=== PATIENT | female | born 1940 | race Caucasian/White ===

== ENCOUNTER → 2016-10-23 | Outpatient (CLI) | payer MEDICARE, BC ==
[~2016-10-23] MED LIST: ACTOS30 MG PO; ALPRAZOLAM0.5 MG PO; ALTACE5 MG PO; ELIQUIS5 MG PO; NORCO 7.5-3251 EACH PO; NORVASC5 MG PO; PRAVACHOL40 MG PO; SERTRALINE HCL100 MG PO; VITAMIN D250000 UNIT PO
== END ==
LOC: US 11:58
DX: N28.1 Cyst of kidney, acquired (principal)

== ENCOUNTER → 2020-05-31 | Outpatient (CLI) | payer MEDICARE ==
[~2020-05-31] MED LIST changes: +ALTACE10 MG PO; +BENADRYL 1% CRE15 GM TP; +CARVEDILOL12.5 MG PO; +CLEOCIN HCL300 MG PO; +EYE VITAMIN PO; +KEFLEX CAP 500500 MG PO; +LEVAQUIN500 MG PO; +LEVOFLOXACIN500 MG PO; +MICROZIDE12.5 MG PO; +NITROSTAT0.4 MG SL; +PERCOCET 5/325 T1 EA PO; +RAMIPRIL10 MG PO; +VISION PLUS LU1 EACH PO; +VITAMIN D21250 MCG PO; -VITAMIN D250000 UNIT PO
[2020-05-31 14:48] LABS: HEMOGLOBIN 11.4 gm/dl (12.3-15.3); RED BLOOD COUNT 3.98 M/UL (4.00-5.10); WHITE BLOOD COUNT 6.5 K/UL (4.5-11.0)
== END ==
LOC: LAB 14:12
PROVIDERS: Internal Medicine Cardiovascular Disease
DX: Z01.818 Encounter for other preprocedural examination (principal); R60.9 Edema, unspecified; R53.83 Other fatigue; R55 Syncope and collapse; R00.1 Bradycardia, unspecified; R06.02 Shortness of breath
CPT/HCPCS: 36415; 71046; 80048; 85025

== ENCOUNTER → 2020-06-02 | Outpatient (CLI) | payer MEDICARE | LOC: CATH 07:19 | PROC: 0JPT32Z Removal of Monitoring Device from Trunk Subcutaneous Tissue and Fascia, Percutaneous Approach (ICD-10-PCS; principal; 2020-06-02) | DX: Z45.09 Encounter for adjustment and management of other cardiac device (principal); I48.0 Paroxysmal atrial fibrillation; I35.0 Nonrheumatic aortic (valve) stenosis; E78.5 Hyperlipidemia, unspecified; E11.9 Type 2 diabetes mellitus without complications; Z79.01 Long term (current) use of anticoagulants; Z82.49 Family history of ischemic heart disease and other diseases of the circulatory system; Z86.73 Personal history of transient ischemic attack (TIA), and cerebral infarction without residual deficits; Z79.899 Other long term (current) drug therapy; Z20.822 Contact with and (suspected) exposure to COVID-19 | CPT/HCPCS: 82962; 99152; 99153; J2250; J3010; J3370; J7040; J7050 ==

== ENCOUNTER → 2020-06-09 | Outpatient (CLI) | payer MEDICARE ==
[2020-06-09 12:02] LABS: HEMOGLOBIN 11.1 gm/dl (12.3-15.3); RED BLOOD COUNT 3.94 M/UL (4.00-5.10); WHITE BLOOD COUNT 6.8 K/UL (4.5-11.0)
== END ==
LOC: LAB 11:02
DX: I20.9 Angina pectoris, unspecified (principal); I35.0 Nonrheumatic aortic (valve) stenosis; I48.0 Paroxysmal atrial fibrillation; R53.83 Other fatigue; R06.02 Shortness of breath; Z87.898 Personal history of other specified conditions
CPT/HCPCS: 36415; 80048; 85025; 85610; 85730

== ENCOUNTER → 2020-06-13 | Outpatient (CLI) | payer MEDICARE | END | disposition home or self-care (01) | LOC: CATH 08:12 | DX: I35.0 Nonrheumatic aortic (valve) stenosis (principal); I27.20 Pulmonary hypertension, unspecified; I48.0 Paroxysmal atrial fibrillation; I11.0 Hypertensive heart disease with heart failure; I50.30 Unspecified diastolic (congestive) heart failure; E11.9 Type 2 diabetes mellitus without complications; E78.5 Hyperlipidemia, unspecified; F41.9 Anxiety disorder, unspecified; F32.9 Major depressive disorder, single episode, unspecified; M19.90 Unspecified osteoarthritis, unspecified site; Z86.73 Personal history of transient ischemic attack (TIA), and cerebral infarction without residual deficits; Z82.49 Family history of ischemic heart disease and other diseases of the circulatory system; Z83.3 Family history of diabetes mellitus; Z88.5 Allergy status to narcotic agent; Z91.040 Latex allergy status; Z79.01 Long term (current) use of anticoagulants; Z79.899 Other long term (current) drug therapy | CPT/HCPCS: 82962; 99152; 99153; C1751; C1769; C1894; J1644; J2250; J3010; J7030; Q9965 ==

== ENCOUNTER 2020-07-12 15:44 | Emergency (ER) | payer MEDICARE ==
[2020-07-12 16:36] LABS: HEMOGLOBIN 10.9 gm/dl (12.3-15.3); RED BLOOD COUNT 3.93 M/UL (4.00-5.10); WHITE BLOOD COUNT 7.3 K/UL (4.5-11.0)
== END 2020-07-12 21:34 | disposition home or self-care (01) ==
LOC: ER1 15:44
PROVIDERS: Emergency Medicine
DX: U07.1 COVID-19 (principal); I10 Essential (primary) hypertension; E78.5 Hyperlipidemia, unspecified; E11.9 Type 2 diabetes mellitus without complications
CPT/HCPCS: 36415; 36600; 71045; 80053; 82550; 82553; 82803; 83690; 83874; 84484; 85025; 85379; 85610; 87635; 93005; 99285; M0239

== ENCOUNTER → 2021-05-31 | Outpatient (CLI) | payer MEDICARE ==
[2021-06-01 08:13] LABS: A/G RATIO 1.8 (1.2-2.2); BILIRUBIN, TOTAL 0.3 mg/dL (0.0-1.2); CALCIUM, SERUM 9.6 mg/dL (8.7-10.3); CREATININE, SERUM 1.15 mg/dL (0.57-1.00); GLOBULIN, TOTAL 2.3 g/dL (1.5-4.5); POTASSIUM, SERUM 4.8 mmol/L (3.5-5.2); PROTEIN, TOTAL, SERUM 6.5 g/dL (6.0-8.5); VITAMIN D, 25-HYDROXY 50.7 ng/mL (30.0-100.0)
== END ==
LOC: LAB 12:44
PROVIDERS: Internal Medicine Nephrology
DX: N18.31 Chronic kidney disease, stage 3a (principal); N25.81 Secondary hyperparathyroidism of renal origin
CPT/HCPCS: 36415; 80053; 82570; 83970; 84100; 84156

== ENCOUNTER → 2021-11-21 | Outpatient (CLI) | payer MEDICARE | LOC: KOH-I 13:21 | DX: N28.1 Cyst of kidney, acquired (principal) | CPT/HCPCS: 76775 ==

== ENCOUNTER 2021-12-07 10:07 | Emergency (ER) | payer MEDICARE ==
[2021-12-07 13:09] LABS: HEMOGLOBIN 11.8 gm/dl (12.3-15.3); RED BLOOD COUNT 4.19 M/UL (4.00-5.10); WHITE BLOOD COUNT 8.8 K/UL (4.5-11.0)
[2021-12-07 13:36] LABS: BUN/CREATININE RATIO 19 (0-10)
== END 2021-12-07 19:45 | disposition home or self-care (01) ==
LOC: ER1 10:07
PROVIDERS: Physician Assistant
DX: I72.4 Aneurysm of artery of lower extremity (principal); I11.9 Hypertensive heart disease without heart failure; E11.9 Type 2 diabetes mellitus without complications; Z86.73 Personal history of transient ischemic attack (TIA), and cerebral infarction without residual deficits; Z88.5 Allergy status to narcotic agent; Z79.01 Long term (current) use of anticoagulants; W01.10XA Fall on same level from slipping, tripping and stumbling with subsequent striking against unspecified object, initial encounter
CPT/HCPCS: 70450; 70486; 71045; 72128; 72131; 72192; 73030; 73522; 80053; 82550; 82553; 82962; 83605; 83690; 84484; 85025; 93005; 99284; Q9967

== ENCOUNTER → 2022-01-24 | Outpatient (CLI) | payer MEDICARE | LOC: LAB 12:12 | DX: Z20.822 Contact with and (suspected) exposure to COVID-19 (principal) | CPT/HCPCS: 36415; U0002 ==